=== PATIENT | male | born 1990 ===

== ENCOUNTER 2025-04-04 23:05 | Emergency (ER) | payer SELFPAY ==
[~2025-04-04] VITALS: Ht 180.3 cm; Wt 81.7 kg
== END 2025-04-04 23:54 | disposition home or self-care (01) ==
LOC: ER 23:05
DX: S43.102A Unspecified dislocation of left acromioclavicular joint, initial encounter (principal); S46.002A Unspecified injury of muscle(s) and tendon(s) of the rotator cuff of left shoulder, initial encounter; X50.0XXA Overexertion from strenuous movement or load, initial encounter
CPT/HCPCS: 73030; 99283-25